=== PATIENT | female | born 1960 | race Caucasian/White ===

== ENCOUNTER → 2017-09-01 | Outpatient (CLI) | payer BC ==
[~2017-09-01] MED LIST: ASPI-232 PO; CHOL20009 PO; LSN5 PO; PRAV10TA39 PO; TRAZ50TA35 PO; WLLSR/200 PO
--- NOTE | 2017-09-04 13:34 | MAMMOGRAPHY REPORT ---
BILATERAL DIGITAL SCREENING MAMMOGRAM TOMOSYNTHESIS WITH CAD: 09/01/2017 CLINICAL HISTORY: Routine screening. Patient has no complaints. TECHNIQUE: Breast tomosynthesis in addition to standard 2D mammography was performed. Current study was also evaluated with a Computer Aided Detection (CAD) system. COMPARISON: Comparison is made to exams dated: 08/30/2016 mammogram, 08/26/2015 mammogram, 07/11/2014 mammogram, 07/09/2013 mammogram, 07/06/2012 mammogram, and 07/05/2011 mammogram - [facility]. BREAST COMPOSITION: There are scattered areas of fibroglandular density in both breasts. FINDINGS: There is a nodular 9 mm focal asymmetry in the left 12:00 breast, for which spot compressi on tomosynthesis views and possible breast ultrasound are recommended for further evaluation. The remainder of both breasts are stable compared to prior exams, without suspicious masses, calcific ations, or areas of architectural distortion noted. A biopsy marker clip is again noted within the l eft upper outer quadrant. IMPRESSION: ACR BI-RADS CATEGORY 0: INCOMPLETE EVALUATION: NEED ADDITIONAL IMAGING EVALUATION Left breast focal asymmetry, for which additional imaging evaluation is recommended. The patient maricle l be called to schedule an appointment. Approximately 10% of breast cancers are not detected with mammography. A negative mammographic report should not delay biopsy if a clinically suggestive mass is present. Lynette Bradley M.D. /:09/01/2017 16:42:08 Process Improvement Engineer: Yolanda SALDIVAR(Lise)(Subha), [facility] letter sent: Addl Imaging 0 BI-RADS Code: ACR BI-RADS Category 0: Incomplete Evaluation: Need Additional Imaging Evaluation
== END | disposition home or self-care (01) ==
LOC: C.MAMM 08:28
PROVIDERS: ATTEND Family Medicine
DX: Z12.31 Encounter for screening mammogram for malignant neoplasm of breast (principal); N64.89 Other specified disorders of breast

== ENCOUNTER → 2017-09-13 | Outpatient (CLI) | payer BC ==
--- NOTE | 2017-09-13 14:26 | MAMMOGRAPHY REPORT ---
UNILATERAL LEFT DIGITAL DIAGNOSTIC MAMMOGRAM TOMOSYNTHESIS AND TARGETED LEFT ULTRASOUND: 09/13/2017 CLINICAL HISTORY: 57-year-old woman called back from screening mammography for a focal asymmetry in t he left breast. Family history of breast cancer = sister. TECHNIQUE: Spot compression tomosynthesis left CC and MLO views were obtained. COMPARISON: Comparison is made to exams dated: 09/01/2017 mammogram, 08/30/2016 mammogram, 08/26/2015 mammogram, 07/11/2014 mammogram, and 07/06/2012 mammogram - [facility]. BREAST COMPOSITION: The tissue of the left breast is almost entirely fatty. FINDINGS: The spot compression tomosynthesis views of the left breast demonstrate a persistent multi loculated and microlobulated 8 mm focal asymmetry in the 12:00 anterior breast. No associated goldie ectural distortion or calcification. No other suspicious mass, asymmetry or distortion is seen in th e visualized left breast. There is a stable ribbon shaped biopsy marker clip in the lateral left elisabet ast. Targeted ultrasound was performed in the 12:00 left breast. In the 12:00 axis, 1 cm from the nipple, there is a subtle isoechoic to slightly hypoechoic parallel oriented mass measuring approximately 7. 9 x 3.0 x 6.8 mm. Although this could represent a microcystic cluster or focal fibrocystic change, a papillary lesion cannot be completely excluded. Definitive characterization with an ultrasound-guid ed core needle biopsy is recommended. IMPRESSION: ACR BI-RADS CATEGORY 4: SUSPICIOUS, TARGETED ULTRASOUND ACR BI-RADS CATEGORY 4: SUSPICIO US Ultrasound-guided core biopsy is recommended in the 12:00 left breast for an indeterminate isoechoic 8 mm mass that could represent a microcystic cluster, focal fibrocystic change or possibly a papillar y lesion. This corresponds to the focal asymmetry seen on screening mammography. These results and recommendations were discussed with the patient at the time of the exam. She tenta tively scheduled the biopsy prior to leaving our department. Approximately 10% of breast cancers are not detected with mammography. A negative mammographic report should not delay biopsy if a clinically suggestive mass is present. Marybel Bojorquez M.D. ay/:09/13/2017 10:16:34 [employer] Head Inspector And Adjuster: Noni SALDIVAR(Lise)(Subha), [facility] letter sent: Abnormal 4/5 BI-RADS Code: ACR BI-RADS Category 4: Suspicious Ultrasound BI-RADS: ACR BI-RADS Category 4: Suspici ous
== END | disposition home or self-care (01) ==
LOC: C.MAMM 09:40
PROVIDERS: ATTEND Family Medicine
DX: N63.20 Unspecified lump in the left breast, unspecified quadrant (principal)

== ENCOUNTER 2020-06-13 08:25 | Inpatient (IN) ==
[2020-06-13] MEDS ORDERED: SODIUM CHLORIDE 0.9% 1000ML 1,000 ML IV SCH ×2 (08:45→15:00)
[2020-06-13] MEDS ORDERED: MoRPHine SULFATE 4 MG/ML 1 ML CARP\\VIAL IV STA (08:50)
[2020-06-13] MEDS ORDERED: ONDANSETRON INJ 2 MG/ML 2 ML VIAL IV STA (08:50)
--- NOTE | 2020-06-13 08:59 | Emergency Department Note ---
Impression & Plan Diverticulitis large intestine, Abdominal pain, Diarrhea ED Provider Note Provider: Antwon Magallanes MD DATE OF SERVICE: 06/13/2020 CHIEF COMPLAINT: Abdominal pain, diarrhea HISTORY OF PRESENT ILLNESS: Patient is a 60-year-old female with a history of pancreatitis and hypertension presenting here today for worsening left-sided abdominal pain and diarrhea symptoms. Pain predominantly in the left lower quadrant to moderate at this time. Patient states she has a history of pancreatitis. She reports about 2 weeks ago she started with some flank pain seen by her primary doctor and had a CT scan. Some initial concern possibly for kidney stone she reports but CT scan without this with signs of a left-sided colon infection. Started on Cipro and Flagyl has been on this for about 5 days now with worsening. Endorses nausea but no vomiting. States some dark-colored stools about 4-5 a day. Denies any chest pain, shortness of breath, URI symptoms. Denies any trauma. Denies fever. Denies use of Pepto-Bismol at home. REVIEW OF SYSTEMS: A total of 10 review of systems was obtained and negative except as stated above in the HPI. PAST MEDICAL HISTORY: As noted above MEDICATIONS: Reviewed SOCIAL HISTORY: Patient's a former smoker, lives at home, denies alcohol use PHYSICAL EXAM: GENERAL: alert and oriented in no acute distress on stretcher Head: normocephalic and atraumatic EYES: No injection, discharge or icterus. NECK: Trachea midline. Supple. ENT: Mucous membranes pink and moist. LUNGS: Airway patent. No retractions. Breath sounds clear HEART: Regular rate and rhythm. No chest wall tenderness ABDOMEN: Soft with some mild left lower quadrant tenderness., With RN lacquer maker rectal exam completed without visualization or palpation of hemorrhoids. Brownish to slightly green stools appreciated that are Hemoccult negative. SKIN: Acyanotic, warm, dry, without rashes EXTREMITIES: Without swelling, tenderness or deformity NEUROLOGICAL: No focal deficits. No aphasia. No facial droop or slurred speech. Normal strength and tone in the extremities. Sensation to gross touch normal. Ambulatory. EK bpm normal sinus rhythm. No PVCs. No acute ST segment elevation or depression. Normal QTC. CONTINUOUS CARDIAC MONITORING: was ordered and showed a heart rate of 82 bpm in normal sinus rhythm Patient's hypertension was referred to the hospitalist HOSPITAL COURSE: 08 Patient was first seen and H&P performed. 1130 Patient reassessed and updated. Patient was resting in bed. Having mild improvement of pain. 1138 discussed with the hospitalist team Patient's laboratory studies and imaging reviewed. Differential includes Appendicitis, infections, diverticulitis, UTI, obstruction, mesenteric ischemia, aortic pathology, inflammatory bowel disease, renal colic, PUD, pancreatitis, biliary pathology, hernia, volvulus, constipation, as well as other pathologies. IMPRESSION/MEDICAL DECISION MAKING: Patient reports left-sided abdominal pain with some nausea. Report some dark stools. Denies any trauma history or fever. Doubt this represents PE or ACS. Reports that she had a colon infection. Stool samples and C. difficile was ordered. Basic labs were completed. Will recomplete a CT scan for look for new acute intra-abdominal process such as colitis versus diverticulitis with or without evidence of obstruction or perforation or abscess. Lower suspicion for acute cholecystitis or appendicitis. States this feels different than her prior pancreatitis. Review of the [facility] medical record indicates the patient had a CT scan without contrast on June 03 showing evidence of sigmoid diverticulitis. The records it does appear that the patient has completed approximately 10 days of Cipro and Flagyl. Laboratory studies today likely did not show evidence of a more systemic infection or sepsis. No evidence of acute ACS without an elevated troponin and no elevation of the LFTs. Urinalysis without convincing evidence of infection. CT shows acute diverticulitis of the descending colon without evidence of perforation or drainable fluid collection. Given that she is been on 10 days of outpatient therapy with Cipro Flagyl and failing given a dose of Zosyn here believe further observation the hospital for clinical improvement is prudent at this time. Discussed the patient is in agreement. Discussed with [facility] hospitalist team. DIAGNOSIS: Diverticulitis, nausea, abdominal pain DISPOSITION: Hospitalist will evaluate Patient was agreeable with this plan. Discussed return precautions and advised follow up. Past Med/Surg History Medical History (Updated 06/13/20 @ 13:33 by Karlee Mcnally PA-C) Anxiety Depression Depression Dyslipidemia Hypertension TMJ (temporomandibular joint syndrome) Surgical History History of appendectomy History of section x3 Family History Other Cancer Diabetes Heart disease Hypertension Lung disease Seizure Social History Smoking Status: Never smoker Hx Alcohol Use: No Hx Substance Use: No Preferred Language: Zimbabwean Communication Ability: Effective Hand Turner Required: No Beliefs That Will Affect Care: None marital status: Current Living Situation: Spouse current occupational status: employed Feels Safe at Home: Yes Allergies Allergies Allergy/AdvReac Type Severity Reaction Status Date / Time No Known Allergies Allergy Unknown ? Verified 06/13/20 09:56 Home Meds Home Medications Medication Instructions Recorded Confirmed aspirin [Aspirin Low Dose] 81 mg PO DAILY 09/16/18 06/13/20 cholecalciferol (vitamin D3) 2,000 unit PO DAILY 09/16/18 06/13/20 lisinopril 5 mg PO DAILY 09/16/18 06/13/20 trazodone 50 mg PO HS 09/16/18 06/13/20 atorvastatin 20 mg PO DAILY 06/13/20 06/13/20 bupropion HCl 300 mg PO DAILY 06/13/20 06/13/20 buspirone 10 mg PO BID PRN 06/13/20 06/13/20 Results & Data (ED) Vital Signs Vital Signs - 24 hr 06/13/20 08:30 06/13/20 08:34 06/13/20 09:11 Temperature 37.3 C Temperature Source Oral Oral Pulse Rate 87 Pulse Rate from SpO2 Sensor Respiratory Rate 20 Respiratory Effort / Characteristics Non-Labored Spontaneous Respiratory Depth Normal Blood Pressure 137/89 Blood Pressure Mean 105 Pulse Oximetry 99 Oxygen Delivery Method Room Air Room Air Sepsis Recent Fever Within 48 Hours No Sepsis New/Unexplained Change in Mental Status No Sepsis Action Taken by Nursing No Action Required 06/13/20 09:22 06/13/20 09:25 06/13/20 09:30 Temperature Temperature Source Pulse Rate 70 72 72 Pulse Rate from SpO2 Sensor Respiratory Rate 15 14 12 Respiratory Effort / Characteristics Respiratory Depth Blood Pressure 124/70 121/71 Blood Pressure Mean 78 82 Pulse Oximetry Oxygen Delivery Method Sepsis Recent Fever Within 48 Hours Sepsis New/Unexplained Change in Mental Status Sepsis Action Taken by Nursing 06/13/20 09:31 06/13/20 09:40 06/13/20 09:50 Temperature Temperature Source Pulse Rate 69 73 72 Pulse Rate from SpO2 Sensor Respiratory Rate 14 15 13 Respiratory Effort / Characteristics Respiratory Depth Blood Pressure Blood Pressure Mean Pulse Oximetry Oxygen Delivery Method Sepsis Recent Fever Within 48 Hours Sepsis New/Unexplained Change in Mental Status Sepsis Action Taken by Nursing 06/13/20 10:00 06/13/20 10:01 06/13/20 10:10 Temperature Temperature Source Pulse Rate 72 71 88 Pulse Rate from SpO2 Sensor Respiratory Rate 16 15 23 Respiratory Effort / Characteristics Respiratory Depth Blood Pressure 138/90 Blood Pressure Mean 111 Pulse Oximetry Oxygen Delivery Method Sepsis Recent Fever Within 48 Hours Sepsis New/Unexplained Change in Mental Status Sepsis Action Taken by Nursing 06/13/20 10:20 06/13/20 10:30 06/13/20 10:31 Temperature Temperature Source Pulse Rate 67 72 72 Pulse Rate from SpO2 Sensor Respiratory Rate 12 12 Respiratory Effort / Characteristics Respiratory Depth Blood Pressure 116/75 Blood Pressure Mean 86 Pulse Oximetry Oxygen Delivery Method Sepsis Recent Fever Within 48 Hours Sepsis New/Unexplained Change in Mental Status Sepsis Action Taken by Nursing 06/13/20 10:40 06/13/20 11:06 06/13/20 11:10 Temperature Temperature Source Pulse Rate 87 80 70 Pulse Rate from SpO2 Sensor 77 70 Respiratory Rate 15 15 13 Respiratory Effort / Characteristics Respiratory Depth Blood Pressure Blood Pressure Mean Pulse Oximetry 95 98 Oxygen Delivery Method Sepsis Recent Fever Within 48 Hours Sepsis New/Unexplained Change in Mental Status Sepsis Action Taken by Nursing 06/13/20 11:20 06/13/20 11:30 06/13/20 11:31 Temperature Temperature Source Pulse Rate 76 83 79 Pulse Rate from SpO2 Sensor 74 83 80 Respiratory Rate 16 13 13 Respiratory Effort / Characteristics Respiratory Depth Blood Pressure 141/81 H Blood Pressure Mean 89 Pulse Oximetry 98 100 100 Oxygen Delivery Method Sepsis Recent Fever Within 48 Hours Sepsis New/Unexplained Change in Mental Status Sepsis Action Taken by Nursing 06/13/20 11:40 06/13/20 11:50 06/13/20 12:00 Temperature Temperature Source Pulse Rate 79 73 66 Pulse Rate from SpO2 Sensor 80 73 66 Respiratory Rate 19 13 13 Respiratory Effort / Characteristics Respiratory Depth Blood Pressure 120/60 Blood Pressure Mean 71 Pulse Oximetry 96 95 97 Oxygen Delivery Method Sepsis Recent Fever Within 48 Hours Sepsis New/Unexplained Change in Mental Status Sepsis Action Taken by Nursing 06/13/20 12:01 06/13/20 12:10 06/13/20 12:20 Temperature Temperature Source Pulse Rate 77 65 79 Pulse Rate from SpO2 Sensor 70 64 78 Respiratory Rate 15 13 24 Respiratory Effort / Characteristics Respiratory Depth Blood Pressure Blood Pressure Mean Pulse Oximetry 97 98 97 Oxygen Delivery Method Sepsis Recent Fever Within 48 Hours Sepsis New/Unexplained Change in Mental Status Sepsis Action Taken by Nursing 06/13/20 12:30 06/13/20 12:31 06/13/20 12:40 Temperature Temperature Source Pulse Rate 66 67 79 Pulse Rate from SpO2 Sensor 65 68 77 Respiratory Rate 13 14 12 Respiratory Effort / Characteristics Respiratory Depth Blood Pressure 150/74 H Blood Pressure Mean 109 Pulse Oximetry 97 94 96 Oxygen Delivery Method Sepsis Recent Fever Within 48 Hours Sepsis New/Unexplained Change in Mental Status Sepsis Action Taken by Nursing 06/13/20 12:50 Temperature Temperature Source Pulse Rate Pulse Rate from SpO2 Sensor 77 Respiratory Rate 22 Respiratory Effort / Characteristics Respiratory Depth Blood Pressure Blood Pressure Mean Pulse Oximetry 93 Oxygen Delivery Method Sepsis Recent Fever Within 48 Hours Sepsis New/Unexplained Change in Mental Status Sepsis Action Taken by Nursing Laboratory Data Result diagrams: 06/13/20 08:55 06/13/20 08:55 Lab Results 06/13/20 06/13/20 06/13/20 Range/Units 08:55 08:55 10:41 WBC 7.20 (4.8-10.8) K/uL RBC 4.37 (4.2-5.4) M/uL Hgb 13.3 (12.0-16.0) g/dL Hct 39.7 (37-47) % MCV 90.8 (80-100) fL MCH 30.4 (25-34) pg MCHC 33.5 (32-36) g/dL RDW Std Deviation 43.8 (36.4-46.3) fL RDW Coeff of Divya 13.1 (11.5-14.5) % Plt Count 233 (130-400) K/uL MPV 9.2 (7.4-10.4) fL Immature Gran % (Auto) 0.1 % Neut % (Auto) 72.2 % Lymph % (Auto) 18.1 % Hayes % (Auto) 5.7 % Eos % (Auto) 3.6 % Baso % (Auto) 0.3 % Neut # (Auto) 5.20 (1.4-6.5) K/uL Lymph # (Auto) 1.30 (1.2-3.4) K/uL Hayes # (Auto) 0.41 (0.11-0.59) K/uL Eos # (Auto) 0.26 (0-0.5) K/uL Baso # (Auto) 0.02 (0-0.2) K/uL Immature Gran # (Auto) 0.01 (0.00-0.02) K/uL Sodium 138 (136-145) mmol/L Potassium 4.0 (3.5-5.1) mmol/L Chloride 105 (98-107) mmol/L Carbon Dioxide 28 (21-32) mmol/L Anion Gap 5.0 (3-11) BUN 11 (7-18) mg/dl Creatinine 1.03 (0.6-1.2) mg/dl Est Cr Clr Drug Dosing 46.8 ml/min Est GFR ( Amer) 67.5 Est GFR (Non-Af Amer) 58.2 BUN/Creatinine Ratio 10.5 (10-20) Glucose 118 H (70-99) mg/dl Calcium 9.2 (8.5-10.1) mg/dl Total Bilirubin 0.3 (0.2-1) mg/dl AST 14 L (15-37) U/L ALT 18 (12-78) U/L Alkaline Phosphatase 72 (45-117) U/L Troponin I < 0.015 (0-0.045) ng/ml Total Protein 7.2 (6.4-8.2) gm/dl Albumin 3.7 (3.4-5.0) gm/dl Globulin 3.5 (2.5-4.0) gm/dl Albumin/Globulin Ratio 1.1 (0.9-2) Lipase 74 (73-393) U/L Urine Color Yellow Urine Appearance Clear (Clear) Urine pH 7.0 (4.5-7.5) Ur Specific [place] 1.009 (1.000-1.030) Urine Protein Negative (Negative) Urine Glucose (UA) Negative (Negative) Urine Ketones Negative (Negative) Urine Blood 1+ H (Negative) Urine Nitrite Negative (Negative) Urine Bilirubin Negative (Negative) Urine Urobilinogen Negative (Negative) Ur Leukocyte Esterase 1+ H (Negative) Urine WBC (Auto) 1-5 (0-5) /hpf Urine RBC (Auto) 5-10 H (0-4) /hpf U Hyaline Cast (Auto) 0 (0-5) /lpf U Epithel Cells (Auto) 20-30 H (0-5) /lpf Urine Bacteria (Auto) Negative (Negative) Administered Medications Ioversol (Optiray 320 100ml) 94 ml IV ONCE PRN PRN Reason: Interaction Checking Stop: 06/17/20 10:58 Last Admin: 06/13/20 10:59 Dose: 94 ml Documented by: [id number] Discontinued Medications Sodium Chloride (Nss 1000ml) 1,000 mls @ 999 mls/hr IV .Q1H1M MIKHAIL Stop: 06/13/20 09:45 Last Infusion: 06/13/20 10:00 Dose: 0 mls/hr Documented by: [id number] Admin: 06/13/20 09:03 Dose: 999 mls/hr Documented by: [id number] Piperacillin Sod/Tazobactam Sod (Zosyn) 4.5 gm in 120 mls @ 240 mls/hr IV NOW ONE Stop: 06/13/20 11:45 Last Infusion: 06/13/20 12:09 Dose: 0 mls/hr Documented by: [id number] Admin: 06/13/20 11:39 Dose: 240 mls/hr Documented by: [id number] Morphine Sulfate (Morphine Sulfate) 4 mg IV NOW STA Stop: 06/13/20 08:51 Last Admin: 06/13/20 09:03 Dose: 4 mg Documented by: [id number] Ondansetron HCl (Zofran) 4 mg IV NOW STA Stop: 06/13/20 08:51 Last Admin: 06/13/20 09:04 Dose: 4 mg Documented by: [id number] Discharge Plan Visit Data Chief Complaint: GI Assessment Stated Complaint: ABDOMINAL PAIN, HAD INFECTION IN COLON ED Provider: Antwon Magallanes Discharge Problem: Diverticulitis large intestine, Abdominal pain, Diarrhea Patient Disposition: Being Evaluated by Hospitalist Condition: Good Discharge Instructions Interventions: ED Discharge Assessment Last Done: 06/13/20 13:04 Forms Stand Alone Forms: [employer] Prescriptions Prescriptions: No Action atorvastatin 20 mg tablet 20 mg PO DAILY RF: 0 buspirone 10 mg tablet 10 mg PO BID PRN (Reason: Anxiety) RF: 0 bupropion HCl 300 mg tablet extended release 24 hr 300 mg PO DAILY RF: 0 trazodone 50 mg tablet 50 mg PO HS RF: 0 aspirin [Aspirin Low Dose] 81 mg Tablet,Delayed Release (Dr/Ec) 81 mg PO DAILY RF: 0 lisinopril 5 mg tablet 5 mg PO DAILY RF: 0 cholecalciferol (vitamin D3) 2,000 unit Capsule 2,000 unit PO DAILY RF: 0 Referrals Referrals: Ceasar Samuel MD [Primary Care Provider] -
[2020-06-13 09:06] LABS: Basophils # (auto) 0.02 K/uL (0-0.2); Basophils % (auto) 0.3 %; Eosinophils # (auto) 0.26 K/uL (0-0.5); Eosinophils % (auto) 3.6 %; Hematocrit (blood only) 39.7 % (37-47); Hemoglobin 13.3 g/dL (12.0-16.0); Immature Granulocytes # (auto) 0.01 K/uL (0.00-0.02); Immature Granulocytes % (auto) 0.1 %; Lymphocytes % (auto) 18.1 %; Mean Corpuscular Hemoglobin 30.4 pg (25-34); Mean Corpuscular Hgb Conc 33.5 g/dL (32-36); Mean Corpuscular Volume 90.8 fL (80-100); Mean Platelet Volume 9.2 fL (7.4-10.4); Monocytes # (auto) 0.41 K/uL (0.11-0.59); Monocytes % (auto) 5.7 %; Neutrophils % (auto) 72.2 %; Platelet Count 233 K/uL (130-400); RDW Coefficient of Variation 13.1 % (11.5-14.5); RDW Standard Deviation 43.8 fL (36.4-46.3); Red Blood Count 4.37 M/uL (4.2-5.4)
[2020-06-13 09:22] LABS: Alanine Aminotransferase 18 U/L (12-78); Albumin Level 3.7 gm/dl (3.4-5.0); Aspartate Aminotransferase 14 U/L (15-37); BUN Creatinine Ratio 10.5 (10-20); Blood Urea Nitrogen 11 mg/dl (7-18); Calcium 9.2 mg/dl (8.5-10.1); Carbon Dioxide 28 mmol/L (21-32); Chloride 105 mmol/L (98-107); Creatinine Clr Calc Pharmacy 46.8 ml/min; Est GFR (African American) 67.5; Est GFR (Non-African American) 58.2; Glucose 118 mg/dl (70-99); Lipase 74 U/L (73-393); Sodium 138 mmol/L (136-145)
[2020-06-13 09:26] LABS: Albumin Globulin Ratio 1.1 (0.9-2); Alkaline Phosphatase 72 U/L (45-117); Bilirubin,Total 0.3 mg/dl (0.2-1); Globulin 3.5 gm/dl (2.5-4.0); Total Protein 7.2 gm/dl (6.4-8.2); Troponin I < 0.015 ng/ml (0-0.045)
[2020-06-13] MEDS ORDERED: IOVERSOL 100ml IV PRN (10:59)
[2020-06-13 11:06] LABS: Appearance Urine Clear (Clear); Bacteria Urine Automated Negative (Negative); Bilirubin Urine Negative (Negative); Blood Urine 1+ (Negative); Cast Urine Automated 0 /lpf (0-5); Color Urine Yellow; Epithelial Cell Urine Auto 20-30 /lpf (0-5); Glucose Urine UA Negative (Negative); Ketones Urine Negative (Negative); Leukocyte Esterase Urine 1+ (Negative); Nitrite Urine Negative (Negative); Protein Urine Negative (Negative); Specific Gravity Urine 1.009 (1.000-1.030); Urobilinogen Urine Negative (Negative)
--- NOTE | 2020-06-13 11:15 | CT Scan Report ---
ABDOMEN AND PELVIS CT WITH IV CONTRAST CT DOSE: 326.35 mGy.cm HISTORY: Acute left lower quadrant abdominal pain with nausea and diarrhea LLQ pain, diarrhea, nause a TECHNIQUE: Multiaxial CT images of the abdomen and pelvis were performed following the IV administrat ion of 94 cc of Optiray 320, A dose lowering technique was utilized adhering to the principles of AL LORENZA. COMPARISON STUDY: CT abdomen and pelvis 09/16/2018 FINDINGS: Right hemidiaphragmatic elevation with mild right greater than left bibasilar atelectasis. There is n o pneumatosis or pneumoperitoneum. The imaged inferior cardiac chambers are unremarkable. Coronary ar sherwin calcifications. The spleen, pancreas, adrenal glands and gallbladder appear unremarkable. Multiple hepatic cysts blayne ure up to 4.1 cm. Patency of the hepatic and portal veins. There are a few bilateral renal cysts blayne uring up to 9 mm on the left. No obstructive uropathy. Partial distention of the urinary bladder. [place] ana and adnexa appear unremarkable. Aorta and IVC are within normal limits. No adenopathy. There is no bowel obstruction. Moderate fecal retention. Trace free pelvic fluid. Mild to moderate fo renan wall thickening with pericolonic stranding is noted involving the distal descending colon centere d around inflamed diverticulum, image 329 series 3. No evidence of perforation or drainable fluid col lection. Appendectomy. Mild lumbar levoscoliosis. No acute fracture. IMPRESSION: 1. Acute diverticulitis of the distal descending colon. No perforation or drainable fluid collection. 2. No bowel obstruction. 3. Moderate fecal retention. 4. Appendectomy. ACT 112: Negative or not required by law. The above report was generated using voice recognition software. It may contain grammatical, syntax o r spelling errors. Electronically signed by: Baron Munoz M.D. 06/13/2020 11:14 AM
[2020-06-13] MEDS ORDERED: PIPERACILLIN/TAZOBACTAM 4.5 GM/120 ML BAG IV ONE (11:16)
[2020-06-13] MEDS ORDERED: PIPERACILL/TAZOBAC CONSULT ACTIVE PRN (11:16)
[2020-06-13] MEDS ORDERED: HYDROmorphone INJ 0.5 MG/0.5 ML SYR IV PRN (12:55)
--- NOTE | 2020-06-13 12:56 | History & Physical Report ---
Date of Service June 13, 2020 Assessment & Plan (1) Acute diverticulitis of intestine: This is a 60-year-old female with PMH of hypertension, dyslipidemia, depression and other medical problems listed below who presents with worsening left-sided abdominal pain x 3 weeks with acute diverticulitis of distal descending colon. -Worsening LLQ abdominal pain x 3 weeks, diverticulitis diagnosed on CT scan as an outpatient. Completed 10-day course of Cipro/Flagyl this morning -CT abd/pelvis with acute diverticulitis of the distal descending colon. No perforation or drainable fluid collection -Afebrile, nontoxic in appearance, no leukocytosis. Started on Zosyn in ED with plans to continue for broad spectrum antibiotic coverage -Stool culture, C. difficile pending. Continue IV fluids. Advance diet to clear liquids, pain control (2) Hypertension: Continue lisinopril (3) Depression: Continue Wellbutrin (4) Anxiety: Continue BuSpar as needed (5) Dyslipidemia: Continue atorvastatin DVT Ppx: SQ Lovenox Code status: FULL PCP: Jimmie Dispo: Admitted to med/surg. Plan to return home once medically stable. Patient seen in collaboration with Dr. Bueno. Please see addendum. History of Present Illness Chief Complaint: Left-sided abdominal pain Primary Care Provider: Ceasar Samuel MD This is a 60-year-old female with PMH of hypertension, dyslipidemia, depression and other medical problems listed below who presents with worsening left-sided abdominal pain x 3 weeks. When pain started initially, patient was seen in clinic with concern for kidney stone. Subsequent CT abdomen pelvis revealed changes consistent with diverticulitis without abscess. Patient was prescribed 10-day course of Cipro and Flagyl which she completed this morning. Left lower quadrant abdominal discomfort has worsened over the past week and patient describes pain as sharp, jabbing and constant. It is nonradiating in nature. Endorses nausea but no vomiting. No fever chills. Has been having diarrhea that is dark in color but denies any bright red blood, black color or clotting. Received Zofran and morphine in ED with resolution of nausea. Patient still experiencing 7 out of 10 pain. Denies any headache, lightheadedness, confusion, chest pain, shortness of breath, dysuria, or constipation. Allergies Allergy/AdvReac Type Severity Reaction Status Date / Time No Known Allergies Allergy Unknown ? Verified 06/13/20 09:56 Home Medications Home Medications Medication Instructions Recorded Confirmed Type aspirin [Aspirin Low Dose] 81 mg PO DAILY 09/16/18 06/13/20 History cholecalciferol (vitamin D3) 2,000 unit PO DAILY 09/16/18 06/13/20 History lisinopril 5 mg PO DAILY 09/16/18 06/13/20 History trazodone 50 mg PO HS 09/16/18 06/13/20 History atorvastatin 20 mg PO DAILY 06/13/20 06/13/20 History bupropion HCl 300 mg PO DAILY 06/13/20 06/13/20 History buspirone 10 mg PO BID PRN 06/13/20 06/13/20 History Past Med/Surg History Medical History (Updated 06/13/20 @ 13:33 by Karlee Mcnally PA-C) Anxiety Depression Depression Dyslipidemia Hypertension TMJ (temporomandibular joint syndrome) Surgical History History of appendectomy History of section x3 Family History Other Cancer Diabetes Heart disease Hypertension Lung disease Seizure Social History Smoking Status: Former smoker Second Hand Exposure: No; Do You Dip or Chew Tobacco: No; Tobacco Cessation Education Requested by Patient: No Hx Alcohol Use: No Hx Substance Use: No Preferred Language: Bengali Communication Ability: Effective Decision Science Analyst Required: No Beliefs That Will Affect Care: None marital status: Current Living Situation: Spouse current occupational status: employed Other Information That Helps Us Care for You: No Feels Safe at Home: Yes Safety Concerns: Feels Safe At This Time Review of Systems Review of Systems: At least ten systems reviewed and negative except as noted in the HPI. Physical Exam Physical Exam: General Appearance: WD/WN, vitals as above, NAD, sitting up in bed, pleasant, conversing easily Head: normocephalic, atraumatic Eyes: normal inspection, PERRL, conjunctivae normal, anicteric sclerae ENT: external ear and nose normal, oropharynx normal Neck: trachea midline, no thyromegaly normal visual inspection Respiratory: normal respiratory effort, lungs clear to auscultation, no wheeze, rales, rhonchi. Normal insp/exp effort Cardiovascular: regular rate, rhythm, no murmur, normal peripheral pulses. Vessels: no JVD Chest: normal inspection of chest Abdomen/GI: normal bowel sounds, soft, TTP of LLQ, nondistended, no hepat osplenomegaly Extremities/Musculoskeletal: no cyanosis or clubbing, extremities motor strength 5/5 Neurologic: PERRL, EOMI, accommodation nl, no face palsy, no dysarthria, CN's II-XI intact bilaterally and moves all extremities Psychiatric: A+Ox3, euthymic affect Skin: no rashes, normal color, warm/dry Results & Data Results & Data ([facility]) Vital Signs (Past 12 Hours) Vital Signs Temp Pulse Resp BP Pulse Ox 06/13/20 10:40 87 15 06/13/20 10:31 72 12 06/13/20 10:30 72 116/75 06/13/20 10:20 67 12 06/13/20 10:10 88 23 06/13/20 10:01 71 15 06/13/20 10:00 72 16 138/90 06/13/20 09:50 72 13 06/13/20 09:40 73 15 06/13/20 09:31 69 14 06/13/20 09:30 72 12 121/71 06/13/20 09:25 72 14 06/13/20 09:22 70 15 124/70 06/13/20 08:30 37.3 C 87 20 137/89 99 Laboratory Results Short CBC 06/13/20 Range/Units 08:55 WBC 7.20 (4.8-10.8) K/uL Hgb 13.3 (12.0-16.0) g/dL Hct 39.7 (37-47) % Plt Count 233 (130-400) K/uL BMP 06/13/20 08:55 Sodium 138 Potassium 4.0 Chloride 105 Carbon Dioxide 28 BUN 11 Creatinine 1.03 Glucose 118 H Calcium 9.2 Cardiac Enzymes 06/13/20 Range/Units 08:55 Troponin I < 0.015 (0-0.045) ng/ml Liver Function 06/13/20 Range/Units 08:55 Total Bilirubin 0.3 (0.2-1) mg/dl AST 14 L (15-37) U/L ALT 18 (12-78) U/L Alkaline Phosphatase 72 (45-117) U/L Albumin 3.7 (3.4-5.0) gm/dl Urine 06/13/20 Range/Units 10:41 Urine Color Yellow Urine Appearance Clear (Clear) Urine pH 7.0 (4.5-7.5) Ur Specific [place] 1.009 (1.000-1.030) Urine Protein Negative (Negative) Urine Glucose (UA) Negative (Negative) Diagnostic Findings CT abd pelvis: IMPRESSION: 1. Acute diverticulitis of the distal descending colon. No perforation or drainable fluid collection. 2. No bowel obstruction. 3. Moderate fecal retention. 4. Appendectomy. Supervising Physician Co-Signing Physician Notes I have seen and examined the patient and have discussed the case with the provider above. I agree with the assessment and plan as stated. The patient is a 60 yo F who was found to have acute diverticulitis incidentally. She was asymptomatic, when left hydronephrosis was seen on an ultrasound per her Urologist. A CT a/p on 05/28 revealed acute diverticulitis and she was given a 7 day course of cipro and flagyl. After a couple of days on the abx, she began having diarrhea, which became more frequent. She developed progressively worsened LLQ abdominal pain consistent with the CT scans over the last two weeks. She is nontoxic appearing but reporting 10/10 pain. She was admitted for pain control and started on Zosyn as above. Physical exam is as stated above with TTP in the LLQ; abdomen is soft and nondistended. She reports 4-5 BMs daily, however, notably the CT scan mentions fecal retention, so question whether or not this may be infectious diarrhea vs overflow diarrhea vs antibiotic related diarrhea. Pain is only somewhat improved with the dilaudid. Will place her on scheduled APAP/Tramadol q8h regimen. Will obtain a lactate and consider consulting general surgery if this is elevated, and definitely if she worsens. GI consult may also be a consideration if she is not improving over the weekend. Cont supportive care for now. DO Myles
[2020-06-13] MEDS ORDERED: HYDROmorphone INJ 0.5 MG/0.5 ML SYR IV STA (13:15)
[2020-06-13] MEDS ORDERED: POLYETHYLENE (MIRALAX) 17 GM PACK PO PRN (14:16)
[2020-06-13] MEDS ORDERED: ONDANSETRON INJ 2 MG/ML 2 ML VIAL IV PRN (14:16)
[2020-06-13] MEDS: ACETAMINOPHEN 500 MG TAB PO SCH ×2 (14:55→22:00)
[2020-06-13] MEDS: PIPERACILLIN/TAZOBACTAM 3.375 GM in DEXTROSE 5% 100 ML IV SCH ×2 (15:48→23:10)
[2020-06-13] MEDS ORDERED: TRAMADOL HCL 50 MG TABLET PO STA (18:02)
[2020-06-13] MEDS: ENOXAPARIN INJ 40 MG/0.4 ML SYR SQ SCH (20:48)
[2020-06-13] MEDS: TRAZODONE HCL 50 MG TAB PO SCH (20:48)
[2020-06-13] MEDS: TRAMADOL HCL 50 MG TABLET PO SCH (21:59)
[2020-06-14] MEDS: TRAMADOL HCL 50 MG TABLET PO SCH ×3 (05:01→22:14)
[2020-06-14] MEDS: ACETAMINOPHEN 500 MG TAB PO SCH ×3 (05:01→22:14)
[2020-06-14 05:53] LABS: Hematocrit (blood only) 32.8 % (37-47); Mean Corpuscular Hemoglobin 30.1 pg (25-34); Mean Corpuscular Hgb Conc 33.5 g/dL (32-36); Mean Corpuscular Volume 89.9 fL (80-100); Platelet Count 190 K/uL (130-400); RDW Standard Deviation 42.4 fL (36.4-46.3); Red Blood Count 3.65 M/uL (4.2-5.4); White Blood Count 3.36 K/uL (4.8-10.8)
[2020-06-14 06:34] LABS: BUN Creatinine Ratio 6.2 (10-20); Calcium 7.9 mg/dl (8.5-10.1); Creatinine Clr Calc Pharmacy 53.6 ml/min; Est GFR (African American) 79.4; Est GFR (Non-African American) 68.5; Potassium 3.8 mmol/L (3.5-5.1)
[2020-06-14] MEDS: PIPERACILLIN/TAZOBACTAM 3.375 GM in DEXTROSE 5% 100 ML IV SCH ×3 (07:53→23:41)
[2020-06-14] MEDS: lisinopriL 5 MG TAB PO SCH (08:30)
[2020-06-14] MEDS: ASPIRIN 81 MG ECTAB PO SCH (08:30)
[2020-06-14] MEDS: CHOLECALCIFEROL 1,000 UNITS 25 MCG TAB PO SCH (08:30)
[2020-06-14] MEDS: BuPROPion XL 300 MG TABCR PO SCH (08:30)
[2020-06-14] MEDS: ATORVASTATIN 20 MG TAB PO SCH (08:30)
--- NOTE | 2020-06-14 15:07 | Hospitalist Progress Note ---
Date of Service June 14, 2020 Assessment & Plan (1) Acute diverticulitis of intestine: This is a 60-year-old female with PMH of hypertension, dyslipidemia, depression and other medical problems listed below who presents with worsening left-sided abdominal pain x 3 weeks with acute diverticulitis of distal descending colon. -Worsening LLQ abdominal pain x 3 weeks, diverticulitis diagnosed on CT scan as an outpatient. Completed 10-day course of Cipro/Flagyl this morning -CT abd/pelvis with acute diverticulitis of the distal descending colon. No perforation or drainable fluid collection -Afebrile, nontoxic in appearance, no leukocytosis. Started on Zosyn in ED with plans to continue for broad spectrum antibiotic coverage -Stool culture-pending -Stool for C. difficile is negative -Doing a lot better today -We will advance diet as tolerated -Advised more ambulation -Likely to be discharged tomorrow on oral Augmentin to complete the 10-day course of antibiotic (2) Hypertension: Continue lisinopril (3) Depression: Continue Wellbutrin (4) Anxiety: Continue BuSpar as needed (5) Dyslipidemia: Continue atorvastatin DVT Ppx: SQ Lovenox Code status: FULL PCP: Jimmie Dispo: Admitted to med/surg. Plan to return home once medically stable. Discussed with the in detail Admission and Anticipated Discharge Date Admission Date: June 13, 2020 Subjective 06/14/2020 The patient was seen and examined in medical floor She was admitted with left lower quadrant pain noted to have acute descending colon diverticulitis He has been feeling a lot better and tolerating clears orally Denies any more pain and bowel has been moving We will advance the diet as tolerated and possible discharge tomorrow Review of Systems Review of Systems: All systems reviewed and are unremarkable except as noted below Gastrointestinal: no abdominal pain, no bloating, no nausea and no vomiting Physical Exam Physical Exam: Sitting on a chair without any acute distress Constitutional: well developed and well nourished; no acute distress and not ill appearing Eyes: PERRL, conjunctivae normal, anicteric sclerae ENMT: external ear and nose normal, oropharynx normal Neck: trachea midline, no thyromegaly Respiratory: normal respiratory effort; no respiratory distress Auscultation: lungs clear to auscultation bilaterally Cardiovascular: Rate/Rhythm: regular rate and regular rhythm Heart Sounds: no murmur Gastrointestinal (Abdomen): Inspection/Auscultation: abdomen normal to inspection and normal bowel sounds; abdomen not distended Percussion/Palpation: abdomen soft; abdomen nontender Musculoskeletal: No acute arthritis in any joints Neurologic: moves all extremities; no focal motor deficits Results & Data Results & Data ([facility]) Vital Signs (Past 12 Hours) Vital Signs Temp Pulse Resp BP Pulse Ox 06/14/20 06:58 36.6 C 70 16 105/60 96 Laboratory Results Short CBC 06/14/20 Range/Units 05:20 WBC 3.36 L (4.8-10.8) K/uL Hgb 11.0 L (12.0-16.0) g/dL Hct 32.8 L (37-47) % Plt Count 190 (130-400) K/uL BMP 06/14/20 05:20 Sodium 145 D Potassium 3.8 Chloride 112 H Carbon Dioxide 29 BUN 6 L D Creatinine 0.90 Glucose 83 Calcium 7.9 L Medications Administered Current Inpatient Medications Acetaminophen (Tylenol) 1,000 mg PO Q8 [facility] Stop: 07/13/20 14:15 Last Admin: 06/14/20 14:19 Dose: 1,000 mg Documented by: Aspirin (Ecotrin Ectab) 81 mg PO DAILY [facility] Stop: 07/14/20 08:59 Last Admin: 06/14/20 08:30 Dose: 81 mg Documented by: Atorvastatin Calcium (Lipitor) 20 mg PO DAILY [facility] Stop: 07/14/20 08:59 Last Admin: 06/14/20 08:30 Dose: 20 mg Documented by: Bupropion HCl (Wellbutrin-Xl) 300 mg PO DAILY [facility] Stop: 07/14/20 08:59 Last Admin: 06/14/20 08:30 Dose: 300 mg Documented by: Buspirone HCl (Buspar) 10 mg PO BID PRN PRN Reason: Anxiety Stop: 07/13/20 14:15 Enoxaparin Sodium (Lovenox) 40 mg SQ HS [facility] Stop: 07/13/20 20:59 Last Admin: 06/13/20 20:48 Dose: 40 mg Documented by: Hydromorphone HCl (Dilaudid) 0.5 mg IV Q4H PRN PRN Reason: Severe Pain Stop: 06/27/20 12:54 Piperacillin Sod/Tazobactam (Sod 3.375 gm/ Dextrose) 115 mls @ 28.75 mls/hr IV Q8H [facility]; Protocol Stop: 06/23/20 15:59 Last Infusion: 06/14/20 11:56 Dose: Infused Documented by: Lisinopril (Zestril) 5 mg PO DAILY [facility] Stop: 07/14/20 08:59 Last Admin: 06/14/20 08:30 Dose: 5 mg Documented by: Miscellaneous Information (Consult) 1 ea N/A UD PRN PRN Reason: Consult Stop: 07/13/20 11:15 Ondansetron HCl (Zofran) 4 mg IV Q6H PRN PRN Reason: Nausea Stop: 07/13/20 14:15 Last Admin: 06/13/20 15:48 Dose: 4 mg Documented by: Polyethylene Glycol (Miralax Powder Packet) 17 gm PO DAILY PRN PRN Reason: Constipation Stop: 07/13/20 14:15 Tramadol HCl (Ultram) 50 mg PO Q8H [facility] Stop: 07/13/20 22:14 Last Admin: 06/14/20 14:20 Dose: Not Given Documented by: Trazodone HCl (Desyrel) 50 mg PO HS [facility] Stop: 07/13/20 20:59 Last Admin: 06/13/20 20:48 Dose: 50 mg Documented by: Vitamin D (Vitamin D3) 2,000 units PO DAILY [facility] Stop: 07/14/20 08:59 Last Admin: 06/14/20 08:30 Dose: 2,000 units Documented by:
[2020-06-14] MEDS: TRAZODONE HCL 50 MG TAB PO SCH (20:54)
[2020-06-14] MEDS: ENOXAPARIN INJ 40 MG/0.4 ML SYR SQ SCH (20:54)
[2020-06-15] MEDS: ACETAMINOPHEN 500 MG TAB PO SCH (05:16)
[2020-06-15] MEDS: TRAMADOL HCL 50 MG TABLET PO SCH (05:16)
[2020-06-15 06:05] LABS: Basophils # (auto) 0.04 K/uL (0-0.2); Basophils % (auto) 1.2 %; Eosinophils # (auto) 0.26 K/uL (0-0.5); Hematocrit (blood only) 33.5 % (37-47); Hemoglobin 11.3 g/dL (12.0-16.0); Lymphocytes # (auto) 1.56 K/uL (1.2-3.4); Lymphocytes % (auto) 48.1 %; Mean Corpuscular Hemoglobin 30.4 pg (25-34); Mean Corpuscular Hgb Conc 33.7 g/dL (32-36); Mean Corpuscular Volume 90.1 fL (80-100); Mean Platelet Volume 8.8 fL (7.4-10.4); Monocytes # (auto) 0.31 K/uL (0.11-0.59); Monocytes % (auto) 9.6 %; Neutrophils # (auto) 1.07 K/uL (1.4-6.5); Neutrophils % (auto) 33.1 %; Nucleated RBC # (auto) 0.02 K/uL (0-0); Nucleated RBC % (auto) 0.7 %; Platelet Count 194 K/uL (130-400); RDW Coefficient of Variation 12.8 % (11.5-14.5); Red Blood Count 3.72 M/uL (4.2-5.4); White Blood Count 3.24 K/uL (4.8-10.8)
[2020-06-15 06:40] LABS: Calcium 8.3 mg/dl (8.5-10.1); Creatinine Clr Calc Pharmacy 50.8 ml/min; Est GFR (African American) 74.4; Est GFR (Non-African American) 64.2; Potassium 3.7 mmol/L (3.5-5.1)
[2020-06-15] MEDS: PIPERACILLIN/TAZOBACTAM 3.375 GM in DEXTROSE 5% 100 ML IV SCH (07:44)
[2020-06-15] MEDS: BuPROPion XL 300 MG TABCR PO SCH (08:38)
[2020-06-15] MEDS: CHOLECALCIFEROL 1,000 UNITS 25 MCG TAB PO SCH (08:38)
[2020-06-15] MEDS: ATORVASTATIN 20 MG TAB PO SCH (08:38)
[2020-06-15] MEDS: ASPIRIN 81 MG ECTAB PO SCH (08:38)
[2020-06-15] MEDS: lisinopriL 5 MG TAB PO SCH (08:38)
[2020-06-15] MEDS ORDERED: AMOXICILLIN/CLAVULANATE 875 MG TAB PO SCH (10:00)
--- NOTE | 2020-06-15 11:29 | Hospitalist Progress Note ---
Date of Service June 15, 2020 Assessment & Plan (1) Acute diverticulitis of intestine: This is a 60-year-old female with PMH of hypertension, dyslipidemia, depression and other medical problems listed below who presents with worsening left-sided abdominal pain x 3 weeks with acute diverticulitis of distal descending colon. -Worsening LLQ abdominal pain x 3 weeks, diverticulitis diagnosed on CT scan as an outpatient. Completed 10-day course of Cipro/Flagyl this morning -CT abd/pelvis with acute diverticulitis of the distal descending colon. No perforation or drainable fluid collection -Afebrile, nontoxic in appearance, no leukocytosis. Started on Zosyn in ED with plans to continue for broad spectrum antibiotic coverage -Stool culture-pending -Stool for C. difficile is negative and stool cultures have been negative -Doing a lot better today, ambulating without difficulty and tolerating regular diet -We will change antibiotic to oral Augmentin to continue for the next 7 days -Discharge home this afternoon -Advised to take laxatives regularly (2) Hypertension: Continue lisinopril (3) Depression: Continue Wellbutrin (4) Anxiety: Continue BuSpar as needed (5) Dyslipidemia: Continue atorvastatin DVT Ppx: SQ Lovenox Code status: FULL PCP: Jimmie Dispo: Admitted to med/surg. Plan to return home once medically stable. Discussed with the in detail Admission and Anticipated Discharge Date Admission Date: June 13, 2020 Subjective 06/14/2020 The patient was seen and examined in medical floor She was admitted with left lower quadrant pain noted to have acute descending colon diverticulitis He has been feeling a lot better and tolerating clears orally Denies any more pain and bowel has been moving We will advance the diet as tolerated and possible discharge tomorrow 06/15/2020 Patient was seen and examined in medical floor in presence of the She has been feeling a lot better and denies any abdominal pain Has been moving her bowels and tolerating regular diet No fever no chills Review of Systems Review of Systems: All systems reviewed and are unremarkable except as noted below Gastrointestinal: + diarrhea/loose stools; no abdominal pain, no bloating, no nausea, no vomiting and no constipation Physical Exam Physical Exam: Sitting on a chair without any acute distress Constitutional: well developed and well nourished; no acute distress and not ill appearing Eyes: PERRL, conjunctivae normal, anicteric sclerae ENMT: external ear and nose normal, oropharynx normal Neck: trachea midline, no thyromegaly Respiratory: normal respiratory effort; no respiratory distress Auscultation: lungs clear to auscultation bilaterally Cardiovascular: Rate/Rhythm: regular rate and regular rhythm Heart Sounds: no murmur Gastrointestinal (Abdomen): Inspection/Auscultation: abdomen normal to inspection and normal bowel sounds; abdomen not distended Percussion/Palpation: abdomen soft; abdomen nontender Neurologic: moves all extremities; no focal motor deficits Alert, awake and oriented x3 Results & Data Results & Data ([facility]) Vital Signs (Past 12 Hours) Vital Signs Temp Pulse Resp BP Pulse Ox 06/15/20 08:02 36.8 C 61 16 120/74 96 06/14/20 23:43 36.9 C 68 16 127/69 98 Laboratory Results Short CBC 06/15/20 Range/Units 05:52 WBC 3.24 L (4.8-10.8) K/uL Hgb 11.3 L (12.0-16.0) g/dL Hct 33.5 L (37-47) % Plt Count 194 (130-400) K/uL BMP 06/15/20 05:52 Sodium 144 Potassium 3.7 Chloride 109 H Carbon Dioxide 33 H BUN 5 L Creatinine 0.95 Glucose 83 Calcium 8.3 L Medications Administered Current Inpatient Medications Acetaminophen (Tylenol) 1,000 mg PO Q8 [facility] Stop: 07/13/20 14:15 Last Admin: 06/15/20 05:16 Dose: 1,000 mg Documented by: Amoxicillin/Clavulanate Potassium (Augmentin 875mg) 1 tab PO BIDM [facility] Stop: 06/25/20 09:59 Last Admin: 06/15/20 09:42 Dose: 1 tab Documented by: Aspirin (Ecotrin Ectab) 81 mg PO DAILY [facility] Stop: 07/14/20 08:59 Last Admin: 06/15/20 08:38 Dose: 81 mg Documented by: Atorvastatin Calcium (Lipitor) 20 mg PO DAILY [facility] Stop: 07/14/20 08:59 Last Admin: 06/15/20 08:38 Dose: 20 mg Documented by: Bupropion HCl (Wellbutrin-Xl) 300 mg PO DAILY [facility] Stop: 07/14/20 08:59 Last Admin: 06/15/20 08:38 Dose: 300 mg Documented by: Buspirone HCl (Buspar) 10 mg PO BID PRN PRN Reason: Anxiety Stop: 07/13/20 14:15 Enoxaparin Sodium (Lovenox) 40 mg SQ HS [facility] Stop: 07/13/20 20:59 Last Admin: 06/14/20 20:54 Dose: 40 mg Documented by: Hydromorphone HCl (Dilaudid) 0.5 mg IV Q4H PRN PRN Reason: Severe Pain Stop: 06/27/20 12:54 Lisinopril (Zestril) 5 mg PO DAILY [facility] Stop: 07/14/20 08:59 Last Admin: 06/15/20 08:38 Dose: 5 mg Documented by: Ondansetron HCl (Zofran) 4 mg IV Q6H PRN PRN Reason: Nausea Stop: 07/13/20 14:15 Last Admin: 06/13/20 15:48 Dose: 4 mg Documented by: Polyethylene Glycol (Miralax Powder Packet) 17 gm PO DAILY PRN PRN Reason: Constipation Stop: 07/13/20 14:15 Tramadol HCl (Ultram) 50 mg PO Q8H [facility] Stop: 07/13/20 22:14 Last Admin: 06/15/20 05:16 Dose: Not Given Documented by: Trazodone HCl (Desyrel) 50 mg PO HS [facility] Stop: 07/13/20 20:59 Last Admin: 06/14/20 20:54 Dose: 50 mg Documented by: Vitamin D (Vitamin D3) 2,000 units PO DAILY [facility] Stop: 07/14/20 08:59 Last Admin: 06/15/20 08:38 Dose: 2,000 units Documented by:
--- NOTE | 2020-06-15 13:19 | Electrocardiogram Report ---
Test Reason : Blood Pressure : / mmHG Vent. Rate : 068 BPM Atrial Rate : 068 BPM P-R Int : 208 ms QRS Dur : 076 ms QT Int : 378 ms P-R-T Axes : 081 069 077 degrees QTc Int : 401 ms Normal sinus rhythm Low voltage QRS Borderline ECG When compared with ECG of 16-SEP-2018 21:13, No significant change was found Confirmed by Oleksandr Paiz ([id number]) on 06/15/2020 1:19:35 PM Referred By: Ceasar Samuel Confirmed By:Oleksandr Paiz
--- NOTE | 2020-06-16 08:49 | Discharge Summary ---
Date of Service June 16, 2020 Admission HPI Per Admitting Provider This is a 60-year-old female with PMH of hypertension, dyslipidemia, depression and other medical problems listed below who presents with worsening left-sided abdominal pain x 3 weeks. When pain started initially, patient was seen in clinic with concern for kidney stone. Subsequent CT abdomen pelvis revealed changes consistent with diverticulitis without abscess. Patient was prescribed 10-day course of Cipro and Flagyl which she completed this morning. Left lower quadrant abdominal discomfort has worsened over the past week and patient describes pain as sharp, jabbing and constant. It is nonradiating in nature. Endorses nausea but no vomiting. No fever chills. Has been having diarrhea that is dark in color but denies any bright red blood, black color or clotting. Received Zofran and morphine in ED with resolution of nausea. Patient still experiencing 7 out of 10 pain. Denies any headache, lightheadedness, confusion, chest pain, shortness of breath, dysuria, or constipation. Admission Exam Per Admitting Provider Physical Exam: General Appearance: WD/WN, vitals as above, NAD, sitting up in bed, pleasant, conversing easily Head: normocephalic, atraumatic Eyes: normal inspection, PERRL, conjunctivae normal, anicteric sclerae ENT: external ear and nose normal, oropharynx normal Neck: trachea midline, no thyromegaly normal visual inspection Respiratory: normal respiratory effort, lungs clear to auscultation, no wheeze, rales, rhonchi. Normal insp/exp effort Cardiovascular: regular rate, rhythm, no murmur, normal peripheral pulses. Vessels: no JVD Chest: normal inspection of chest Abdomen/GI: normal bowel sounds, soft, TTP of LLQ, nondistended, no hepatosplenomegaly Extremities/Musculoskeletal: no cyanosis or clubbing, extremities motor strength 5/5 Neurologic: PERRL, EOMI, accommodation nl, no face palsy, no dysarthria, CN's II-XI intact bilaterally and moves all extremities Psychiatric: A+Ox3, euthymic affect Skin: no rashes, normal color, warm/dry Principal Diagnosis Acute diverticulitis, hypertension Discharge Exam Constitutional well developed and well nourished; no acute distress and not ill appearing Eyes PERRL, conjunctivae normal, anicteric sclerae ENMT external ear and nose normal, oropharynx normal Neck trachea midline, no thyromegaly Respiratory normal respiratory effort; no respiratory distress Auscultation: lungs clear to auscultation bilaterally Cardiovascular Rate/Rhythm: regular rate and regular rhythm Heart Sounds: no murmur Gastrointestinal (Abdomen) Inspection/Auscultation: abdomen normal to inspection and normal bowel sounds; abdomen not distended Percussion/Palpation: abdomen soft; abdomen nontender Neurologic moves all extremities; no focal motor deficits Discharge Data Allergies Allergy/AdvReac Type Severity Reaction Status Date / Time No Known Allergies Allergy Unknown ? Verified 06/13/20 09:56 Consultations 06/13/20 11:40 ED Decision to Admit Stat Ordered Studies 06/13/20 08:59 CT abd pelvis IV con only Stat Hospital Course (1) Acute diverticulitis of intestine: This is a 60-year-old female with PMH of hypertension, dyslipidemia, depression and other medical problems listed below who presents with worsening left-sided abdominal pain x 3 weeks with acute diverticulitis of distal descending colon. -Worsening LLQ abdominal pain x 3 weeks, diverticulitis diagnosed on CT scan as an outpatient. Completed 10-day course of Cipro/Flagyl this morning -CT abd/pelvis with acute diverticulitis of the distal descending colon. No perforation or drainable fluid collection -Afebrile, nontoxic in appearance, no leukocytosis. Started on Zosyn in ED with plans to continue for broad spectrum antibiotic coverage -Stool culture-pending -Stool for C. difficile is negative and stool cultures have been negative -Doing a lot better today, ambulating without difficulty and tolerating regular diet -We will change antibiotic to oral Augmentin to continue for the next 7 days -Discharge home this afternoon -Advised to take laxatives regularly (2) Hypertension: Continue lisinopril (3) Depression: Continue Wellbutrin (4) Anxiety: Continue BuSpar as needed (5) Dyslipidemia: Continue atorvastatin DVT Ppx: SQ Lovenox Code status: FULL PCP: Jimmie Dispo: Admitted to med/surg. Plan to return home once medically stable. Discussed with the in detail Total Time Total Time Spent Total Time Spent (In Minutes): 35 minutes Total Time Includes: Examination of the Patient, Discharge Planning, Medication Reconciliation and Communication With Other Providers Discharge Plan Discharge Items Patient Disposition: Home - Self-Care Reason For Visit: ACUTE DIVERTICULITIS Discharge Diagnosis: Acute diverticulitis, hypertension Condition on Discharge: Good Activity: Resume your previous activity Non-emergency contact: Primary Care Provider Call non-emergency contact if: you have any medication questions and your symptoms worsen Follow-up/Referrals: Ceasar Samuel MD [Primary Care Provider] - 06/19/20 12:00 pm (Your appointment is with Dr. Santana (Dr. Samuel is not available)) Diet: Heart Healthy and Low Fiber Addtl Attending Provider Instructions: Please take regular laxatives for good bowel movement every day Pending Studies at Discharge: No Stand-Alone Forms: My [facility] [employer], Smoking Cessation Medications and DC Order Prescriptions: New amoxicillin-pot clavulanate [Augmentin] 875-125 mg Tablet 1 tab PO BIDM Qty: 14 RF: 0 Lactinex 1 million cell tablet,chewable 1 tab PO BID Qty: 30 RF: 0 Continued atorvastatin 20 mg tablet 20 mg PO DAILY RF: 0 buspirone 10 mg tablet 10 mg PO BID PRN (Reason: Anxiety) RF: 0 bupropion HCl 300 mg tablet extended release 24 hr 300 mg PO DAILY RF: 0 trazodone 50 mg tablet 50 mg PO HS RF: 0 aspirin [Aspirin Low Dose] 81 mg Tablet,Delayed Release (Dr/Ec) 81 mg PO DAILY RF: 0 lisinopril 5 mg tablet 5 mg PO DAILY RF: 0 cholecalciferol (vitamin D3) 2,000 unit Capsule 2,000 unit PO DAILY RF: 0 Discharge Orders: Discharge Order (Routine); Ordered 06/15/20 Ordered By: Libby Desouza Admission Data Admit Date/Time: 06/13/20 11:56 Attending Provider: Libby Desouza Admit Provider: Maren Bueno Primary Care Provider: Ceasar Samuel Other Providers: Maren Bueno Other Interventions: Discharge Summary Assessment (RN) Last Done: 06/15/20 13:11 DC Date/Time DO NOT enter until pt leaves facility: 06/15/20 13:40
== END 2020-06-15 13:40 | disposition home or self-care (01) | DRG 392 ==
LOC: ED 08:25 → 3E 11:56 → SUATTDRO 11:56 → 3E 13:04